=== PATIENT | male | born 1965 | race Caucasian/White ===

== ENCOUNTER → 2020-02-22 | Outpatient (CLI) | payer OTHER | END | disposition home or self-care (01) | LOC: SHCH 15:33 | PROVIDERS: ATTEND Internal Medicine Cardiovascular Disease | DX: R06.09 Other forms of dyspnea (principal); R07.9 Chest pain, unspecified | CPT/HCPCS: 93306; 93356 ==

== ENCOUNTER 2020-03-17 05:51 | Day surgery (SDC) | payer OTHER ==
[2020-03-11 12:56] LABS: BASOPHILS % (AUTO) 0.6 % (0.0-5.0); EOSINOPHILS % (AUTO) 4.2 % (0.0-8.0); HEMATOCRIT 37.4 % (42-54); LYMPHOCYTES % (AUTO) 41.3 % (21.0-51.0); MEAN CORPUSCULAR HEMOGLOBIN 32.1 pg (27.0-33.0); MEAN CORPUSCULAR HGB CONC 33.7 g/dL (32.0-36.0); MEAN CORPUSCULAR VOLUME 95.4 fL (79-99); MONOCYTES % (AUTO) 8.3 % (3.0-13.0); NEUTROPHILS % (AUTO) 45.4 % (40.0-77.0); PLATELET COUNT (AUTO) 156 K/uL (130-400); RED BLOOD CELL COUNT(AUTO) 3.92 MIL/uL (4.50-6.20); WHITE BLOOD COUNT (AUTO) 5.2 K/uL (4.8-10.8)
[2020-03-11 13:12] LABS: CREATININE 1.1 mg/dL (0.5-1.5); POTASSIUM 3.8 mmol/L (3.5-5.1)
[2020-03-11 13:15] LABS: INR 0.92 (0.85-1.15)
[2020-03-11 13:31] VITALS: BP 169/74
[2020-03-17] VITALS (10 sets, daily range): BP systolic 120–137; BP diastolic 72–84
[~2020-03-17] VITALS: Ht 172.7 cm; Wt 76.9 kg
[~2020-03-17 05:51] MED LIST: AEC81 PO; VENL150C2 PO
--- NOTE | 2020-03-17 06:15 | NUR ---
ASSESSMENT PT HERE FORPROCEDURE. DENIES ANY PAIN, SOB AT THIS TIME.
[2020-03-17] MEDS ORDERED: SODIUM CHLORIDE 0.9% 1000ML 1,000 ML IV ONE (06:27)
--- NOTE | 2020-03-17 07:15 | NUR ---
PROCEDURE PT TAKEN TO PROCEDURE VIA STRETCHER BY [employer]OU[employer] STAFF [employer]
[2020-03-17] MEDS ORDERED: HEPARIN SODIUM 1000UNIT/ML 10ML VIAL ONE (07:20)
[2020-03-17] MEDS ORDERED: IOHEXOL-350 50ML VIAL IV ONE (07:21)
[2020-03-17] MEDS ORDERED: IOHEXOL 350 MG/ML 100ML INFUS..BTL IV ONE ×2 (07:21→07:23)
[2020-03-17] MEDS ORDERED: NITROGLYCERIN 2 MG/VIAL VIAL IV ONE (07:21)
[2020-03-17] MEDS ORDERED: LIDOCAINE HCL 2% 20ML ONE (07:21)
[2020-03-17] MEDS ORDERED: SODIUM CHLORIDE 0.9% 1000ML 1,000 ML IV SCH ×2 (08:00→08:15)
[2020-03-17] MEDS ORDERED: GLUCAGON 1MG KIT 1 MG ML IM PRN (08:15)
[2020-03-17] MEDS ORDERED: DEXTROSE 50%-WATER 50 ML DISP.SYRIN IV PRN (08:15)
--- NOTE | 2020-03-17 08:50 | NUR ---
PROCEDURE PT RETURNED FROM [facility]. INSTRUCTED PT ON IMPORTANCE OF NOT MOVING RIGHT LEG OR LIFTING HEAD UP OFF OF BED. PT VERBALIZED UNDERSTANDING.
--- NOTE | 2020-03-17 14:00 | NUR ---
PT PT DISCHARGED. ORAL AND WRITTEN INSTRUCTIONS GIVEN TO PT. NO QUESTIONS AT THIS TIME. INSTRUCTED ON THE IMPORTANCE OF MONITORING SITE. VERBALIZED UNDERSTANDING.
== END 2020-03-17 14:05 | disposition home or self-care (01) ==
LOC: DAH 05:51
PROVIDERS: ATTEND Internal Medicine Cardiovascular Disease
DX: I25.119 Atherosclerotic heart disease of native coronary artery with unspecified angina pectoris (principal); I50.32 Chronic diastolic (congestive) heart failure; Q21.1 Atrial septal defect; F41.9 Anxiety disorder, unspecified; F32.9 Major depressive disorder, single episode, unspecified; R60.0 Localized edema; Z79.01 Long term (current) use of anticoagulants; Z98.890 Other specified postprocedural states; Z82.49 Family history of ischemic heart disease and other diseases of the circulatory system; Z87.891 Personal history of nicotine dependence; Z82.69 Family history of other diseases of the musculoskeletal system and connective tissue; Z79.899 Other long term (current) drug therapy
CPT/HCPCS: 36415; 71045; 80048; 85025; 85610; 85730; 93005; 93460; A4215; A4216; A4221; A4222; A4223 ×3; A4606; A4663; C1894 ×3; J1644 ×2; J3490 ×2; J7030; Q9965; Q9967 ×2; 96360; 96361; 96365